=== PATIENT | female | born 1995 | race Two or more races ===

== ENCOUNTER 2023-06-09 09:12 | Emergency (ER) | payer MEDICAID, OTHER ==
[~2023-06-09] VITALS: Ht 162.6 cm; Wt 67.2 kg
[2023-06-09] MEDS: KETOROLAC TROMETH 30 MG/ML 1ML VIAL IM ONE (11:12)
[2023-06-09 11:15] VITALS: BP 122/76; PULSE 76; RESP 19; TEMP 98; O2SAT 96
== END 2023-06-09 13:30 | disposition home or self-care (01) ==
LOC: ER 09:12
DX: R51.9 Headache, unspecified (principal); W17.89XA Other fall from one level to another, initial encounter; Y93.41 Activity, dancing; Y92.89 Other specified places as the place of occurrence of the external cause; Y99.8 Other external cause status
CPT/HCPCS: 70450; 96372; 99285; J1885